=== PATIENT | female | born 1990 | race Asian ===

== ENCOUNTER 2017-10-22 21:00 | Emergency (ER) | payer MEDICAID ==
[~2017-10-22] VITALS: Ht 167.6 cm; Wt 95.2 kg
[2017-10-22 21:13] VITALS: Ht 167.6 cm; Wt 95.2 kg
[2017-10-22 23:11] VITALS: BP 108/61
== END 2017-10-22 23:11 | disposition home or self-care (01) ==
LOC: ED 21:00
DX: N61.0 Mastitis without abscess (principal)
CPT/HCPCS: 76641; J1885; J3490

== ENCOUNTER 2017-12-15 16:28 | Emergency (ER) | payer MEDICAID ==
[~2017-12-15] VITALS: Ht 170.2 cm; Wt 79.4 kg
[2017-12-15 16:41] VITALS: BP 113/52; Ht 170.2 cm; Wt 79.4 kg
== END 2017-12-15 18:06 | disposition home or self-care (01) ==
LOC: ED 16:28
DX: S61.041A Puncture wound with foreign body of right thumb without damage to nail, initial encounter (principal); X58.XXXA Exposure to other specified factors, initial encounter; Y93.89 Activity, other specified; Y92.89 Other specified places as the place of occurrence of the external cause; Y99.8 Other external cause status

== ENCOUNTER 2018-01-21 23:39 | Emergency (ER) | payer MEDICAID ==
[~2018-01-21] VITALS: Ht 170.2 cm; Wt 80.5 kg
[2018-01-21 23:49] VITALS: Ht 170.2 cm; Wt 80.5 kg
[2018-01-22 00:58] VITALS: BP 115/68
== END 2018-01-22 00:58 | disposition home or self-care (01) ==
LOC: ED 23:39
DX: R11.0 Nausea (principal); R19.7 Diarrhea, unspecified; R10.84 Generalized abdominal pain
CPT/HCPCS: J2765

== ENCOUNTER 2018-07-30 15:30 | Emergency (ER) | payer MEDICAID ==
[~2018-07-30] VITALS: Ht 170.2 cm; Wt 79.8 kg
[2018-07-30 15:34] VITALS: Ht 170.2 cm; Wt 79.8 kg
[2018-07-30 17:19] LABS: BASOPHIL % 0.7 % (0-2); PLATELET COUNT 284 x10^3mcL (130-400)
[2018-07-30 18:40] VITALS: BP 108/72
== END 2018-07-30 18:40 | disposition home or self-care (01) ==
LOC: ED 15:30
PROVIDERS: Emergency Medicine
DX: O9A.211 Injury, poisoning and certain other consequences of external causes complicating pregnancy, first trimester (principal); S39.93XA Unspecified injury of pelvis, initial encounter; W18.39XA Other fall on same level, initial encounter; Y93.89 Activity, other specified; Y92.89 Other specified places as the place of occurrence of the external cause; Y99.8 Other external cause status
CPT/HCPCS: 36415

== ENCOUNTER 2018-09-06 21:43 | Emergency (ER) | payer MEDICAID ==
[~2018-09-06] VITALS: Ht 170.2 cm; Wt 77.1 kg
[2018-09-06 21:53] VITALS: Ht 170.2 cm; Wt 77.1 kg
[2018-09-06 23:21] VITALS: BP 108/60
== END 2018-09-06 23:21 | disposition home or self-care (01) ==
LOC: ED 21:43
DX: O99.511 Diseases of the respiratory system complicating pregnancy, first trimester (principal); Z3A.11 11 weeks gestation of pregnancy
CPT/HCPCS: Q0092